=== PATIENT | female | born 2000 | race Caucasian/White ===

== ENCOUNTER 2022-01-23 17:01 | Outpatient (CLI) | payer OTHER, SELFPAY ==
[2022-01-23 20:46] LABS: Cholesterol* 185 mg/dL (90-199); HDL Cholesterol* 82 mg/dL (>=50); LDL Cholesterol Calculated 72 mg/dL (<100); Triglycerides* 153 mg/dL (40-149)
[2022-01-23 22:07] LABS: Chlamydia DNA Amplified* NOT DETECTED (No Detected); GC DNA Amplified* NOT DETECTED (No Detected)
== END 2022-01-23 17:02 | disposition home or self-care (01) ==
PROVIDERS: PCP Family Medicine; Visit Provider Registered Nurse
DX: Z01.419 Encounter for gynecological examination (general) (routine) without abnormal findings (principal); Z13.6 Encounter for screening for cardiovascular disorders; Z11.3 Encounter for screening for infections with a predominantly sexual mode of transmission
CPT/HCPCS: 80061; 87491; 87591

== ENCOUNTER 2022-06-22 08:45 | Outpatient (RCR) | payer OTHER, SELFPAY | END 2022-09-27 23:59 | disposition home or self-care (01) | PROVIDERS: PCP Family Medicine; Visit Provider Chiropractor | DX: M99.01 Segmental and somatic dysfunction of cervical region (principal); M54.12 Radiculopathy, cervical region; M99.02 Segmental and somatic dysfunction of thoracic region; Z51.89 Encounter for other specified aftercare | CPT/HCPCS: 97110; 97112; 97161 ==

== ENCOUNTER 2023-06-11 18:03 | Outpatient (CLI) | payer OTHER, SELFPAY ==
[2023-06-11 22:23] LABS: Chlamydia DNA Amplified* NOT DETECTED (No Detected); GC DNA Amplified* NOT DETECTED (No Detected)
== END 2023-06-11 18:04 | disposition home or self-care (01) ==
PROVIDERS: PCP Family Medicine; Visit Provider Registered Nurse
DX: R00.0 Tachycardia, unspecified (principal); Z13.1 Encounter for screening for diabetes mellitus; Z11.3 Encounter for screening for infections with a predominantly sexual mode of transmission
CPT/HCPCS: 82947; 84132; 84443; 87491; 87591

== ENCOUNTER 2024-06-26 15:35 | Outpatient (CLI) | payer OTHER, SELFPAY | END 2024-06-26 15:36 | disposition home or self-care (01) | PROVIDERS: PCP Family Medicine; Visit Provider Registered Nurse | DX: F41.9 Anxiety disorder, unspecified (principal); Z12.4 Encounter for screening for malignant neoplasm of cervix | CPT/HCPCS: 84443; 87624; 87625; 88141; 88142 ==